=== PATIENT | female | born 1955 | race American Indian/Alaskan Native ===

== ENCOUNTER 2017-07-19 10:50 | Emergency (ER) | payer MEDICARE ==
[2017-07-19 11:33] LABS: Basophils % (Auto) 0.4 % (0.0-1.8); Eosinophils % (Auto) 1.3 % (0.0-4.3); Hematocrit 39.3 % (30.3-42.9); Hemoglobin 13.5 gm/dl (10.1-14.3); Mean Corpuscular HGB Conc 34 % (30-34); Mean Corpuscular Hemoglobin 28 pg (28-32); Mean Corpuscular Volume 81 fl (79-97); Platelet Count 247 K/mm3 (140-440); Red Blood Count 4.87 M/mm3 (3.65-5.03); White Blood Count 14.7 K/mm3 (4.5-11.0)
[2017-07-19 11:49] LABS: Anion Gap 16 mmol/L; BUN/Creatinine Ratio 17; Blood Urea Nitrogen 10 mg/dL (7-17); Calcium 9.2 mg/dL (8.4-10.2); Carbon Dioxide 28 mmol/L (22-30); Chloride 102.6 mmol/L (98-107); Glucose 154 mg/dL (65-100); Potassium 3.7 mmol/L (3.6-5.0); Sodium 143 mmol/L (137-145)
[2017-07-19 15:56] VITALS: BP 155/98
--- NOTE | 2017-07-19 17:18 | Emergency Department Report ---
ED General Adult HPI - General Chief complaint: High BP Stated complaint: HYPERTENSION Time Seen by Provider: 07/19/17 16:27 Source: patient Mode of arrival: Ambulatory Limitations: No Limitations - History of Present Illness Initial comments: Patient is very anxious to leave at the time of my encounter. She states she was seen by her family doctor on Thursday who found her to have a tachycardia. Her blood pressure was elevated at that time. She increased losartan to 2 pills a day. She had been previously taken off Coreg. Patient has no history of thyroid problems. She states that she has had a dry somewhat staccato cough but no fever or chills. She does not complain of any respiratory symptoms. The cough is completely nonproductive. She denies chest pain she denies shortness of breath on my encounter May some mention of this in triage apparently. She is not short of breath now. She denies leg pain or swelling. -: Gradual Severity scale (0 -10): 0 Consistency: constant Improves with: none Worsens with: none Associated Symptoms: denies other symptoms, cough - Related Data Previous Rx's Medication Instructions Recorded Last Taken Type Coreg 25 mg PO BID #60 06/06/15 05/26/16 Rx Carvedilol [Coreg] 12.5 mg PO BID #60 tablet 07/19/17 Unknown Rx Allergies Allergy/AdvReac Type Severity Reaction Status Date / Time Penicillins Allergy Shortness Verified 05/25/16 23:58 of Breath ED Review of Systems ROS: Stated complaint: HYPERTENSION Other details as noted in HPI Constitutional: denies: chills, fever Eyes: denies: eye pain, eye discharge, vision change ENT: denies: ear pain, throat pain Respiratory: cough. denies: SOB at rest, wheezing Cardiovascular: denies: chest pain, palpitations Endocrine: no symptoms reported Gastrointestinal: denies: abdominal pain, nausea, diarrhea Genitourinary: denies: urgency, dysuria, discharge Musculoskeletal: denies: back pain, joint swelling, arthralgia Skin: denies: rash, lesions Neurological: denies: headache, weakness, paresthesias Psychiatric: denies: anxiety, depression Hematological/Lymphatic: denies: easy bleeding, easy bruising ED Past Medical Hx - Past Medical History Hx Hypertension: Yes Additional medical history: Eye Disease, - Surgical History Additional Surgical History: Partial hysterectomy, Hernia Repair, - Social History Smoking Status: Never Smoker - Medications Home Medications: Home Medications Medication Instructions Recorded Confirmed Last Taken Type Coreg 25 mg PO BID #60 06/06/15 05/26/16 05/26/16 Rx Carvedilol [Coreg] 12.5 mg PO BID #60 tablet 07/19/17 Unknown Rx ED Physical Exam - General Limitations: No Limitations General appearance: alert, in no apparent distress - Head Head exam: Present: atraumatic, normocephalic - Eye Eye exam: Present: normal appearance, PERRL, EOMI. Absent: scleral icterus - ENT ENT exam: Present: mucous membranes moist - Neck Neck exam: Present: normal inspection, thyromegaly (I believe the patient does have thyromegaly). Absent: tenderness, meningismus - Respiratory Respiratory exam: Present: normal lung sounds bilaterally. Absent: respiratory distress - Cardiovascular Cardiovascular Exam: Present: regular rate, normal rhythm. Absent: systolic murmur, diastolic murmur, rubs, gallop - GI/Abdominal GI/Abdominal exam: Present: soft, normal bowel sounds. Absent: distended, tenderness, guarding, rebound, rigid - Extremities Exam Extremities exam: Present: normal inspection - Back Exam Back exam: Present: normal inspection - Neurological Exam Neurological exam: Present: alert, oriented X3, CN II-XII intact. Absent: motor sensory deficit - Psychiatric Psychiatric exam: Present: normal affect, normal mood - Skin Skin exam: Present: warm, dry, intact, normal color. Absent: rash ED Course Vital Signs 07/19/17 07/19/17 07/19/17 10:59 14:49 15:55 Temperature 98.6 F 98.2 F Pulse Rate 120 H 101 H 94 H Respiratory 20 18 16 Rate Blood Pressure 171/101 Blood Pressure 171/101 149/83 155/98 [Left] O2 Sat by Pulse 96 96 98 Oximetry - Reevaluation(s) Reevaluation #1: Patient is unwilling to stay any longer for further medical evaluation. Her chest x-ray showed nothing acute. She does have that of a white count however this is nonspecific. I don't see any evidence of a significant infectious process. I cannot workup any further as patient does not want to stay. She is agreed to have a thyroid profile sent. I will place her back on her Coreg. I' m not sure what the etiology of her tachycardia is. I don't know if it could be thyrotoxicosis or beta juliana withdrawal although that is not that common with Coreg. She is somewhat deconditioned and obese. Other etiologies are possible. I recommended that she see her family physician for further workup. I will check her thyroid profile when it is available today. 07/19/17 17:17 07/19/17 17:20 A urinalysis will also be sent. ED Medical Decision Making - Lab Data Result diagrams: 07/19/17 11:16 07/19/17 11:16 Laboratory Results - last 24 hr 07/19/17 07/19/17 11:16 11:16 WBC 14.7 H RBC 4.87 Hgb 13.5 Hct 39.3 MCV 81 MCH 28 MCHC 34 RDW 14.0 Plt Count 247 Lymph % (Auto) 23.0 [facility] % (Auto) 6.5 Eos % (Auto) 1.3 Baso % (Auto) 0.4 Lymph # 3.4 [facility] # 1.0 H Eos # 0.2 Baso # 0.1 Seg Neutrophils % 68.8 Seg Neutrophils # 10.1 H Sodium 143 Potassium 3.7 Chloride 102.6 Carbon Dioxide 28 Anion Gap 16 BUN 10 Creatinine 0.6 L Estimated GFR > 60 BUN/Creatinine Ratio 17 Glucose 154 H Calcium 9.2 Troponin T < 0.010 Laboratory Results - last 24 hr 07/19/17 07/19/17 07/19/17 11:16 11:16 17:24 WBC 14.7 H RBC 4.87 Hgb 13.5 Hct 39.3 MCV 81 MCH 28 MCHC 34 RDW 14.0 Plt Count 247 Lymph % (Auto) 23.0 [facility] % (Auto) 6.5 Eos % (Auto) 1.3 Baso % (Auto) 0.4 Lymph # 3.4 [facility] # 1.0 H Eos # 0.2 Baso # 0.1 Seg Neutrophils % 68.8 Seg Neutrophils # 10.1 H Sodium 143 Potassium 3.7 Chloride 102.6 Carbon Dioxide 28 Anion Gap 16 BUN 10 Creatinine 0.6 L Estimated GFR > 60 BUN/Creatinine Ratio 17 Glucose 154 H Calcium 9.2 Troponin T < 0.010 TSH 0.386 Free T4 0.94 - EKG Data -: EKG Interpreted by Me EKG shows normal: sinus rhythm, axis, intervals, QRS complexes, ST-T waves Rate: tachycardia - EKG Data Interpretation: no acute changes (left axis deviation) Critical care attestation.: If time is entered above; I have spent that time in minutes in the direct care of this critically ill patient, excluding procedure time. ED Disposition Clinical Impression: Tachycardia, Essential hypertension, Thyromegaly Disposition: - TO HOME OR SELFCARE Is pt being admited?: No Does the pt Need Aspirin: No Condition: Stable Instructions: Thyroid Goiter (ED), Hypertension (ED) Additional Instructions: I cannot finish her workup. Take her thyroid is probably enlarged. I would like to give us a urine specimen to further evaluation. You can call back over the next 2 hours for the results of these tests. Follow-up with your primary care physician as soon as possible. Prescriptions: Carvedilol [Coreg] 12.5 mg PO BID #60 tablet Referrals: PRIMARY CAREMD [Primary Care Provider] - 3-5 Days Time of Disposition: 17:22
--- NOTE | 2017-07-19 17:26 | XRay Report ---
FINAL REPORT EXAM: XR CHEST 1V AP HISTORY: hypertension,cough TECHNIQUE: upright single view chest PRIORS: None. FINDINGS: Cardiac and mediastinal contours are unremarkable. No focal pulmonary infiltrate is identified. No pleural fluid collection seen. Pulmonary vasculature is unremarkable. IMPRESSION: Negative single-view chest
== END 2017-07-19 18:12 | disposition home or self-care (01) ==
LOC: ED 10:50
DX: R00.0 Tachycardia, unspecified (principal); I10 Essential (primary) hypertension; E01.0 Iodine-deficiency related diffuse (endemic) goiter
CPT/HCPCS: 36415; 71010; 80048; 84439; 84443; 84484; 85025; 93005; 93010